=== PATIENT | female | born 1930 | race Two or more races ===

== ENCOUNTER 2018-03-12 09:28 | Outpatient (CLI) | payer MEDICARE, MEDICAID ==
--- NOTE | 2018-03-12 12:08 | Diagnostic Imaging Report ---
Indication: Dysphasia COMPARISON: None FINDINGS: Biphasic upper GI examination was performed with barium in multiple projections. Esophagus demonstrated normal distensibility with no stricture or obvious mass. Peristalsis was impaired consistent with the dysmotility. IMPRESSION: Impairment of esophageal motility. Total fluoroscopic time 0.3 minutes.
== END 2018-03-12 11:28 | disposition home or self-care (01) ==
LOC: RAD 09:28
DX: K22.2 Esophageal obstruction (principal)
CPT/HCPCS: 74220